=== PATIENT | female | born 1995 | race Caucasian/White ===

== ENCOUNTER 2023-04-21 10:30 | Emergency (ER) | payer OTHER, SELFPAY ==
[2023-04-21 10:33] VITALS: BP 170/100; PULSE 118; RESP 20; TEMP 36.5; O2SAT 96; BMI 25.8
--- NOTE | 2023-04-21 10:45 | ED_ITS ---
HPI - General Adult General Chief complaint: Extremity Problem, Nontraumatic Stated complaint: HANDS TIGHT/TINGLY/NUMBNESS Time Seen by Provider: 04/21/23 10:40 Source: patient Mode of arrival: walk-in Limitations: no limitations History of Present Illness HPI narrative: patient complains of pain and tingling in both hands - left worse than the right - that began years ago when she worked at [employer], stopped when she stopped working there and unexpectedly returned 2 weeks ago without any repetitive work. She denied any pain to the shoulder, elbows, forearms and wrist at rest but once those areas are palpated she told me that the pain is terrible . She is jittery and won't sit still or keep her extremities still and appears to be on something. Related Data Previous Rx's Medication Instructions Recorded hydralazine 25 mg tablet 25 mg PO BID #14 tabs 04/21/23 Allergies Allergy/AdvReac Type Severity Reaction Status Date / Time No Known Drug Allergies Allergy Verified 04/21/23 10:35 Exam Narrative Exam Narrative: Nurses notes and vital signs reviewed and patient is not hypoxic. afebrile General: won't sit still and keeps moving her arms and legs. Skin: Warm, dry, no pallor noted. No rash. Head: Normocephalic, atraumatic. Neck: Supple, non-tender. Eye: Pupils are equal, round and EOMI. No scleral icterus. Ears, Nose, Mouth, and Throat: Oral mucosa is moist Cardiovascular: Regular Rate and Rhythm without murmur, gallop or rub. Respiratory: No accessory muscle use or respiratory distress. Lungs are clear to auscultation, no wheezing, rales or rhonchi Back: No midline thoracic or lumbar vertebral tenderness. Musculoskeletal: Both UEs with normal ROM, no upper extremity edema/swelling. She has intact and equal sensation bilaterally to the UEs. Palpation of anywhere from the shoulder to the fingers of both UE is painful but I see no swelling, ecchyosis or sign of long bone fracture. Neurological: A&O x4. No cranial nerve dysfunction observed. No truncal ataxia. Moves all extremities. Sensation intact. Psychiatric: Cooperative and interactive. Normal mood and affect. Constitutional Vital Signs, click to edit/add: Last Vital Signs Temp 97.7 F 04/21/23 10:33 Pulse 118 H 04/21/23 10:33 Resp 20 04/21/23 10:33 BP 170/100 H 04/21/23 10:33 Pulse Ox 96 04/21/23 10:33 O2 Del Method Room Air 04/21/23 10:33 Course Vital Signs Vital signs: Vital Signs Temperature 97.7 F 04/21/23 10:33 Pulse Rate 118 H 04/21/23 10:33 Respiratory Rate 20 04/21/23 10:33 Blood Pressure 170/100 H 04/21/23 10:33 Pulse Oximetry 96 04/21/23 10:33 Oxygen Delivery Method Room Air 04/21/23 10:33 Temperature 97.7 F 04/21/23 10:33 Pulse Rate 118 H 04/21/23 10:33 Respiratory Rate 20 04/21/23 10:33 Blood Pressure 170/100 H 04/21/23 10:33 Pulse Oximetry 96 04/21/23 10:33 Oxygen Delivery Method Room Air 04/21/23 10:33 Medical Decision Making MDM Narrative Medical decision making narrative: Patient appears to be on some sort of intoxicant but denies any alcohol or drug use. She was given IM Solumedrol and oral hydralazine in the ED before being discharged home with prescription for additional hydralazine - I believe her symptoms are associated with her agitation and anxiety. She was given referral info for new PCP as she has none. She does not work so she does not need a work excuse. Discharge Plan Discharge Chief Complaint: Extremity Problem, Nontraumatic Clinical Impression: Paresthesia, Peripheral neuropathy Patient Disposition: Home, Self-Care Time of Disposition Decision: 11:07 Prescriptions / Home Meds: New hydralazine 25 mg tablet 25 mg PO BID Qty: 14 0RF Stand Alone Forms: Portal Instructions Referrals: Physician,Non-Staff, MD [Primary Care Provider] - 1 week
[2023-04-21 11:21] VITALS: BP 170/100
[2023-04-21] MEDS: HYDRALAZINE HCL 25 MG TABLET PO (11:21)
[2023-04-21] MEDS: METHYLPREDNISOLONE SOD SUCC PF 125 MG/2 ML VIAL IM (11:21)
== END 2023-04-21 11:27 | disposition home or self-care (01) ==
PROVIDERS: Emergency Provider Emergency Medicine
DX: G62.9 Polyneuropathy, unspecified (principal); R20.2 Paresthesia of skin
CPT/HCPCS: 96372; 99284; J2930